=== PATIENT | female | born 1950 | race Caucasian/White ===

== ENCOUNTER 2025-08-08 06:24 | Day surgery (SDC) | payer MEDICARE, OTHER, SELFPAY | END 2025-08-08 15:32 | disposition home or self-care (01) | LOC: GI 06:24 | PROVIDERS: ATTENDING PHYSICIAN Internal Medicine Gastroenterology | DX: Z12.11 Encounter for screening for malignant neoplasm of colon (principal); K57.30 Diverticulosis of large intestine without perforation or abscess without bleeding; K64.8 Other hemorrhoids; K44.9 Diaphragmatic hernia without obstruction or gangrene; K31.89 Other diseases of stomach and duodenum; K63.5 Polyp of colon; K31.A19 Gastric intestinal metaplasia without dysplasia, unspecified site; Z98.0 Intestinal bypass and anastomosis status | CPT/HCPCS: 45380; 43239; 88305; 88342 ==